=== PATIENT | male | born 1995 | race Caucasian/White ===

== ENCOUNTER 2025-01-07 19:20 | Emergency (ER) | payer BC, SELFPAY ==
--- OUTSIDE RECORDS SUMMARY | 2009-11-13 02:15 | XMS_ITS | Continuity of Care Document ---
Author Organization [facility] Address [address] [address] [place] [address] Phone Care Team Providers Care Forging Press Lever Tender Name Role Phone Yo Shah MD Unavailable Unavaila ble Allergies, Adverse Reactions, Alerts Substance Reaction Status Criticality No Known allergies Medications Medication Instructions Dosage Effective Dates (start - stop) Status Comments Vicodin 5 mg-500 mg Tab take 1 tablet by ORAL route every 4 - 6 hours as needed for pain - Active Prilosec OTC 20 mg Tab take 1 Capsule by Oral route every 1.00 Capsule - Active Procedures Procedure Date Ugi Endo; W/bx 1/mx Ultrasound, Abdominal, Limited 10 Offic Cons New/estab Mod Routine Serum Collection [id number] Results Test Name Date and Time Measure Units Reference Range Abnormal Flag Status Comments Panel Description: H Pylori Urease Unknown H Pylori Urease Negative Unknown Advance Directives Directive Yes / No Effective Date File Name No Information Encounters Encounter Description Practice Location Reason(s) For Visit Diagnoses Date Provider Providers Copied on Encounter [facility], [address] [address], [place], [id number], tel:[phone] Cassia Rhodes Procedures No Information 0 Pablo mai [address] [facility], [address], [place], [id number] , . tel:[phone] Referring Provider: Lee Peck MD, [address] [place] [address], [address]. tel:[phone] [facility], [address] [address], [place], [place], [id number], tel:[phone] [facility] No Information Sep-0 2-201 0 Shazia Stewart. [address] [facility], [facility] [address], [facility] [place], [id number] , [place]. tel:[phone] Referring Provider: Lee Peck MD, [address] [place] [address], [place], [address]. tel:[phone] Offic Cons New/estab Mod [facility], [address] [address], [place], [place], [id number], tel:[phone] [facility] Abdominal pain (chief complaint) RUQ PainCholelithiasis Sep-0 2-201 0 Pablo arana. [address] [facility], [facility] [address], [place], [place], [id number] , . tel:[phone] Referring Provider: Lee Peck MD, [address] [place] [address], [address]. tel:[phone] Family History Family Member Type Diagnosis Age At Onset First degree family history Problem (finding) No history of Crohn's First degree family history Problem (finding) No history of Ulcerative Colitis First degree family history Problem (finding) No Family history of No history of Colon Polyps First degree family history Problem (finding) No history of Colon Rectal Cancer Payers Payer name Insurance type Covered constitution party ID Authornoheliaa crystal(s) [employer] [facility] [id number] Social History Type Description Quantity Date Captured Comments Sex Male Smoking Status No Information Chief Complaint And Reason For Visit No Information Reason For Referral Reason For Referral No Information History Of Present Illness Encounter Date Complaint History Of Prese nt Illness No Information Functional Status Date Functional Assessmen t No Information Instructions Date Instruction Additional Infor mation No Information Assessments Type Assessment Date No Information Patient Care Teams Name Effective Dates (start - stop) Status Members No Information
[2025-01-07 19:31] VITALS: BP 133/98; PULSE 69; RESP 16; TEMP 37; O2SAT 99; BMI 22.9
--- NOTE | 2025-01-07 19:48 | ED.GENADULT ---
HPI - General Adult General Chief complaint: Fall/Minor Trauma Stated complaint: Potential Femur Injury Time Seen by Provider: 01/07/25 19:24 Source: patient Mode of arrival: ambulatory Limitations: no limitations History of Present Illness HPI narrative: 29-year-old male coming in today complaining of leg pain. 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 He landed on his left side with the steel beam hitting him right across the lateral thigh. He stated that he laid there for about 30 minutes, felt very nauseated secondary to pain. And then he was able to get up and go about his business. He states that today he went deer hunting and continue to do some work. This afternoon he then sat down and the pain slowly increased while he was resting. He states that he can still walk without significant difficulty. He feels pain when he extends at the ankle. He denies significant swelling of the thigh. He denies changes in his skin color. He states that he took Advil this morning but has not taken anything since. Patient is generally healthy, takes no medications and has no known drug allergies. Related Data Home Medications ?Medication ?Instructions ?Recorded ?Confirmed No Known Home Medications 01/07/25 01/07/25 Allergies Allergy/AdvReac Type Severity Reaction Status Date / Time No Known Drug Allergies Allergy Verified 01/07/25 19:31 Review of Systems Status of ROS: Reports: 6 or more systems reviewed and unremarkable except as noted in History and below Exam Narrative: Exam Narrative: Well-nourished well-developed, appropriately thin patient in no acute distress. Alert and oriented x3. Answers questions appropriately. Mood and affect are appropriate. Thoughts are goal oriented and rational. No tangential or magical thinking noted. Patient speaks in full sentences without needing to catch their breath. GCS is 15. Patient is speaking and breathing without difficulty. There is no obvious bleeding noted. HEENT: Normocephalic atraumatic. Pupils are equally round reactive to light. Extraocular muscles are intact. Conjunctivae are moist without any icterus noted. Moist mucous membranes. Patient takes deep breaths without any discomfort. Patient has no tenderness to palpation of the anterior, lateral posterior chest wall. Abdomen: Soft and nontender nondistended with normal bowel sounds. Extremities: Patient has a normal appearing thigh. There is no swelling or erythema. No broken skin. No ecchymosis. He has tenderness to palpation over the lateral thigh. He has full range of motion at the hip, knee and ankle. No pallor. He has normal DP and PT pulses. His gait is normal. Skin: Well perfused without any obvious rashes. Const: Vital Signs, click to edit/add: Vital Signs - 24 hr 01/07/25 19:31 Temperature 98.6 F Pulse Rate [Pulse Oximeter] 69 Respiratory Rate 16 Blood Pressure [Ri ght Upper Arm] 133/98 H Pulse Oximetry 99 Oxygen Delivery Me thod Room Air Course Vital Signs Vital signs: Initial Vital Signs Temperature 98.6 F 01/07/25 19:31 Temperature Source Temporal Artery Scan 01/07/25 19:31 Pulse Rate 69 01/07/25 19:31 Respiratory Rate 16 01/07/25 19:31 Blood Pressure 133/98 H 01/07/25 19:31 Blood Pressure Mean 109 H 01/07/25 19:31 Blood Pressure Position Sitting 01/07/25 19:31 Pulse Oximetry 99 01/07/25 19:31 Oxygen Delivery Method Room Air 01/07/25 19:31 Vital Signs Temperature 98.6 F 01/07/25 19:31 Pulse Rate 69 01/07/25 19:31 Respiratory Rate 16 01/07/25 19:31 Blood Pressure 133/98 H 01/07/25 19:31 Pulse Oximetry 99 01/07/25 19:31 Oxygen Delivery Method Room Air 01/07/25 19:31 Temperature 98.6 F 01/07/25 19:31 Pulse Rate 69 01/07/25 19:31 Respiratory Rate 16 01/07/25 19:31 Blood Pressure 133/98 H 01/07/25 19:31 Pulse Oximetry 99 01/07/25 19:31 Oxygen Delivery Method Room Air 01/07/25 19:31 Medical Decision Making MDM Narrative Medical decision making narrative: 29-year-old male contusion to the thigh. I do not see any physical evidence of a fracture of the femur. I do not see any evidence at this time of compartment syndrome. His pain seems to have gotten worse as his NSAIDs have worn off. We discussed possibility of a bony contusion. We discussed the possibility of an intramuscular hematoma. At this time I think conservative management is acceptable. We discussed signs and symptoms of compartment syndrome and reasons to return to the ER. I offered the patient Toradol at this time or other stronger pain medications and he declined. Discharge Plan Discharge Clinical Impression: Contusion of left thigh Patient Disposition: Home, Self-Care Condition: Stable Additional Instructions: If you develop worsening pain that does not get better with Advil or ibuprofen, if you develop pallor of the skin, if you cannot walk - these could be signs of a medical emergency called compartment syndrome and you should return to the emergency room immediately. Otherwise, recommend Advil as needed/as prescribed for the next couple of days at least. Recommend you ice the thigh today for 20 minutes at a time every hour for a few hours. Do not apply ice directly to the skin and do not ice for more than 20 minutes at 1 time. Tomorrow recommend gentle heat to the area to keep the muscles soft and to keep the muscles from cramping. Prescriptions: No Action No Known Home Medications Stand Alone Forms: MyHealth Info Instructions
--- OUTSIDE RECORDS SUMMARY | 2025-01-07 20:24 | XMS_ITS | Encounter Summary ---
Author Organization [facility] er Address [address] [place] [address] Care Team Providers Care Special Warfare Operator Name Role Phone None, Pcp Primary Care Provider Unavailabl e Encounter Details Date Type Department Care Team (Late st Contact Info) Description 10/07/2024 Results Follow-Up Acute Care [address] [place] [address] Taran Diane PA-C [address] [place] [address] X-ray Chest 2 Views Social History Tobacco Use Types Packs/Day Years Used Date Smoking Tobacco: Never Smokeless Tobacco: Never Alcohol Use Standard Drinks/Week Comments Not Currently 0 (1 standard drink = 0.6 oz pur e alcohol) PHQ-2 Answer Date Recorded PHQ-9 Total Score 0 10/07/2024 Sex and Gender Information Value Date Recorded Sex Assigned at Not on file Legal Sex Male 9:17 AM CDT Gender Identity Not on file Sexual Orientation Not on file documented as of this encounter Plan of Treatment Not on file documented as of this encounter Visit Diagnoses Not on filedocumented in this encounter Care Teams Special Warfare Operator Relationship Specialty Start Date End Date None, Pcp [address] [facility] [place] [address] PCP - General Warranty Clerk 10/07/24 documented as of this encounter
--- OUTSIDE RECORDS SUMMARY | 2025-01-07 20:24 | XMS_ITS | Clinical Summary ---
Author Organization [facility] er Address [address] [place] [address] Care Team Providers Care Respiratory Therapist Name Role Phone None, Pcp Primary Care Provider Unavailabl e Allergies No known active allergies Medications cetirizine (ZyrTEC ALLERGY) 10 MG tabletIndication s:Acute cough Take 1 tablet (10 mg total) by mouth 1 (one) time each day 30 tablet 10/07/2024 Active Active Problems No known active problems Encounters Date Type Department Care Team Description 10/07/2024 10:50 AM CDT - 10/07/2024 11:59 PM CDT Hospital Encounter Radiology [address] [place] [address] Discharge Disposition: Home or Self Care 10/07/2024 10:00 AM CDT Office Visit Acute Care [address] [place] [address] Taran Diane PA-C Acute cough (Primary Dx); Elevated blood pressure reading 10/07/2024 Results Follow-Up Acute Care [address] [place] [address] Taran Diane PA-C X-ray Chest 2 Views from Last 3 Months Immunizations Immunization Administration Dates Next Due Hep A, 2 Dose 01/05/2009 Tdap 03/08/2018 Social History Tobacco Use Types Packs/Day Years [...] on file Sexual Orientation Not on file Last Filed Vital Signs Vital Sign Reading Time Taken Comments Blood Pressure 144/73 10/07/2024 9:30 AM CDT rec heck Pulse 73 10/07/2024 9:30 AM CDT Temperature 36.3 C (97.4 F) 10/07/2024 9:27 AM CDT Respiratory Rate 16 10/07/2024 9:27 AM CDT Oxygen Saturation 99% 10/07/2024 9:27 AM CDT Inhaled Oxygen Concentration - - Weight 71.3 kg (157 lb 3 oz) 10/07/2024 9:27 AM CDT Height - - Body Mass Index - - Plan of Treatment Health Maintenance Due Date Last Done Comments COVID-19 Vaccine (1 - 2023-2 5 season) 2024 Influenza Vaccine (#1) 2024 DTaP,Tdap,and Td Vaccines (2 - Td or Tdap) 03/08/2028 03/08/2018 HPV Vaccines Aged Out No longer eligi ble based on patient's age to complete this topic Pneumococcal Vaccine: Pediat rics (0 to 5 Years) and At-Risk Patients (6 to 49 Years) Aged Out No longer eligi ble based on patient's age to complete this topic Procedures Procedure Name Priority Date/Time Associated Diagnosis Comments XR CHEST 2 VIEWS Routine 10/07/2024 10:5 3 AM CDT Acute cough from Last 3 Months Results * X-ray Chest 2 Views (10/07/2024 10:53 AM CDT) Anatomical Region Laterality Modality Body, Chest, Lung Digital Radiog mode Impressions 10/07/2024 10:55 AM CDT Unremarkable exam. Narrative 10/07/2024 10:55 AM CDT INDICATION: cough x 3 weeks with SOB COMPARISON: None available FINDINGS: XR CHEST 2 VIEWS No pulmonary vascular cephalization. Heart size is within normal limits. The lungs show no confluent infiltrate. No pneumothorax or pleural effusion. No acute bony abnormality. Procedure Note Antonietta Montoya MD - 10/07/2024 INDICATION: cough x 3 weeks with SOB COMPARISON: None available FINDINGS: XR CHEST 2 VIEWS No pulmonary vascular cephalization. Heart size is within normal limits.The lungs show no confluent infiltrate. No pneumothorax or pleuraleffusion. No acute bony abnormality. IMPRESSION: Unremarkable exam. Taran Diane PA-C IMG XR PROCEDURES Fi nal Result from Last 3 Months Insurance [facility] Care Teams Respiratory Therapist Relationship Specialty Start Date End Date None, Pcp [address] [facility] [place] [address] PCP - General Decating Machine Operator 10/07/24
== END 2025-01-07 20:10 | disposition home or self-care (01) ==
LOC: ED 20:22
PROVIDERS: Emergency Provider Family Medicine
DX: S70.12XA Contusion of left thigh, initial encounter (principal); W17.89XA Other fall from one level to another, initial encounter
CPT/HCPCS: 99283